=== PATIENT | male | born 1935 ===

== ENCOUNTER → 2022-07-04 | Outpatient (CLI) | payer MEDICARE | END | disposition home or self-care (01) | LOC: LABPAT 11:13 | PROVIDERS: ATTEND Orthopaedic Surgery | DX: Z01.818 Encounter for other preprocedural examination (principal); Z22.322 Carrier or suspected carrier of Methicillin resistant Staphylococcus aureus; M43.16 Spondylolisthesis, lumbar region; M48.061 Spinal stenosis, lumbar region without neurogenic claudication | CPT/HCPCS: 87070 ==

== ENCOUNTER 2022-07-12 08:00 | Inpatient (IN) | payer MEDICARE ==
[2022-07-06 11:42] VITALS: BMI 27.3
--- NOTE | 2022-07-12 06:27 | P.HPOR ---
History of Present Illness H&P Date: 07/04/22 .T:Title: [facility] History and Physical Date of :[birth year] Age: 87 year Height: 5'8" Weight: 180 lbs BMI: 27.37 kg/m2 Occupation: Ag Equipment Field Service Technician for [employer] VAS: 6 CHIEF COMPLAINT: Low back, buttock pain, RLE pain with weakness DOI:NA, Chronic Duration of current treatment regiment: 5 mo HISTORY : Xrays brought xrays from outside facility which were reviewed New xrays taken in office Trauma or injury No Work-Related No Pain description dull, aching, sharp. Location posterior Activity Modification yes Hand Dominance right TREATMENTS COMPLETED: 6 weeks of PT completed? Month and Year of last PT date? 02/2022 Yes How many sessions? 6 Did it help? No Physician recommended home exercise completed? Duration of HEP course: Current Patient has trialed the physician directed home exercise program without relief of their symptoms. Medications yes List: Amitriptyline without any relief Alternative interventions Chiropractic: No Massage therapy: No R.I.C.E: yes Brace: No Injections No RFA: No SUBJECTIVE: Mr. Saavedra returns to the office for a pre-operative recheck of their low back pain and planned L4-L5 MIS TLIF. Patient reports increasing low back pain and right lower extremity radiculopathy with no new known injury or trauma to indicate an exact onset of their symptoms. In addition to their lumbar pain, they do report that it radiates into the right lower extremity, associated withnumbness and tingling through the right L3-L5 dermatomal distribution. Overall the patient has seen a progressive increase in symptoms since their onset. Mr. Saavedra symptoms are exacerbated with any prolonged sitting, standing, or ambulation, due to this they notes that it is increasingly difficult for Mr. Saavedra to complete many of their daily tasks. Patient is having severe sleep disturbances as well due to their ongoing pain and associated symptoms. Regarding treatments, the patient has previously trialed all abovementioned treatment modalities without relief of his symptoms. Patient denies trialing any other modalities at this time. Otherwise the patient denies any f/c/sob/cp, no incision concerns, no bladder or bowel retention/incontinence, no perineal numbness/tingling, and ambulates independently. HPI: Mr. Saavedra last returned to the office on 04/28/2022 for recheck of their low back pain and to review his planned L4-L5 MIS TLIF. Patient reports increasing lumbar pain with right lower extremity radiculopathy with no new known injury or trauma to indicate an exact onset of their symptoms. In addition to their lumbar pain, they do report that it radiates into the right lower extremity, associated with numbness and tingling through the L3-L5 dermatomal distribution. Overall the patient has seen a progressive increase in symptoms since their onset. Mr. Saavedra symptoms are exacerbated with prolonged standing, ambulation, and high impact movements like walking up and down stairs, due to this they notes that it is increasingly difficult for Mr. Saavedra to complete many of their daily tasks. Patient is having severe sleep disturbances as well due to their ongoing pain and associated symptoms. Regarding treatments, the patient has previously trialed all abovementioned treatment modalities without relief of his symptoms. Patient denies trialing any other modalities at this time. Otherwise the patient denies any f/c/sob/cp, no incision concerns, no bladder or bowel retention/incontinence, no perineal numbness/tingling, and ambulates independently. Mr. Saavedra last presented to the office on 04/28/2022 for Evaluation of his low back and hip pain on the right. He states it has been going on for >6 mo and is getting worse. He has dealt with pain his whole life, but over the past three months it has been much worse. 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 He visited Dr. Julien and Dr. Herr and both agreed after MRI was ordered that he needed intervention due to progressive sx. He has tried PT as well as some HEP without help. He has taken medications antiinflammatories with no lasting effect. He denies any bowel or bladder issues states no perineal numbness or tingling but does state weakness in his leg, hip pain as well as buttock and tailbone pain that seems to radiate down his right leg. He denies any f/c/sob/cp at this time. He is very spry and normally performs all ADLs on his own, he is having difficulty with this however as of late due to his sx. The patients' past social, medical, family, surgical history, as well as review of systems, have been reviewed. Please refer to the Neurosurgery History and Physical form that has been scanned in to our electronic medical record system. 16 points review of systems completed and as stated in HPI, all other systems reviewed are negative. Social History: Reviewed, see appropriate section of the chart for details. P3 Family History: Reviewed, see appropriate section of the chart for details. P2 Past Medical History: Reviewed, see appropriate section of the chart for details. P1 Current Medications: Rx: amitriptyline 50 mg tablet Ref: 0 Rx: atorvastatin 40 mg tablet Ref: 0 Rx: finasteride 5 mg tablet Ref: 0 Rx: levothyroxine 50 mcg capsule Ref: 0 Rx: omeprazole 20 mg tablet,delayed release Ref: 0 Rx: tamsulosin 0.4 mg capsule Ref: 0 PHYSICAL EXAMINATION: General: Awake, alert, appropriate for age, in no acute distress. HEENT: No unusual neck masses around region of lateral neck triangle, thyroid, supraclavicular groove Heart: Regular rate and rhythm, normal S1, S2 and no murmur/gallop. Lungs: Clear to auscultation bilaterally with no use of accessory muscles. Extremities: Skin warm and dry without acute lesions, coloration, temperature, skin intact, no tenderness or erythema Integument: Hairy patches: ABSENT Dorsal skin dimples: ABSENT Cafe au lait spots: ABSENT Surgical incisions: None Palpation: Please see Pain drawing on Intake sheet for further detail. Midline spinal tenderness: No E6 Cervical Tenderness: No E6 Paralumbar tenderness: Yes E6 Parathoracic tenderness: No E6 Buttocks tenderness: Yes E6 POSTURAL and MUSCULO-SKELETAL EVALUATION: Coronal Balance: NEUTRAL Recumbent testing: Patient is able to lay flat on back Sagittal Balance: POSITIVE Shoulder Profile: LEVEL Pelvic Girdle: LEVEL Neck ROM: UNRESTRICTED Lumbar ROM: RESTRICTED Shoulder ROM: Symmetrical Hip ROM: Symmetrical Knee ROM: Symmetrical Hands: Normal appearance, symmetrical Feet: Normal appearance, Symmetrical VASCULAR STATUS : LEFT RIGHT Wrist Pulses INTACT INTACT Pedal Pulses (Dors. pedis & post.tibialis) INTACT INTACT Color NORMAL NORMAL Edema Absent Absent NEUROLOGIC EXAMINATION: Mental Status:Awake and alert, fully oriented, with normal attention, concentration and memory, and fluent, appropriate speech. Cranial Nerves: I: Olfactory not tested. II: Visual acuity normal, no visual field deficit noted with confrontation. III,IV: Normal pupillary reflexes & intact extraocular movements without nystagmus. V,: Intact symmetrical facial sensation. VII: Intact symmetrical facial motor movement VIII: Hearing intact. IX,X: Intact gag, swallow, & normal voice. XI: Sternocleidomastoid, trapezius function intact. XII: Tongue midline with normal movements. L'hermitte's Sign: Negative / absent Spurling'Sign: Absent bilaterally. Cubital percussion test: Absent bilaterally. Bond-Tinel sign - Carpal region: Absent bilaterally. Straight Leg Raising: Absent bilaterally. Crossed straight leg raise: negative O8 MOTOR EXAM (0-5/5, N/T) UPPER EXTREMITY Shoulder Abduction Biceps Triceps Wrist Extension Hand Intrinsics Kit Planner Right 5/5 5/5 5/5 5/5 5/5 5/5 Left 5/5 5/5 5/5 5/5 5/5 5/5 LOWER EXTREMITY Hip Flexion Knee Extension Knee Flexion DF PF EHL FHL Right 4/5 4/5 4/5 4/5 4/5 4/5 4/5 Left 4/5 4/5 4/5 4/5 4/5 4/5 4/5 REFLEXES(0-4/2, NT)Upper ExtremityLower Extremity Right 2 2 Left 2 2 Pathological Reflexes RIGHT LEFT Bond's Absent Absent Clonus Absent Absent Babinski Absent Absent # Indicates mechanical impairment Muscle appearance: Symmetrical, without signs of atrophy or dystrophy. Sensory system (0-4, N/T) Test type RU MARK RL LL Joint-Position 2 2 2 2 Vibration 2 2 2 2 Pain & LT sense 2 2 2 2 Dermatomal Deficit: None None L3-5 None Gait and Functional Evaluation: Ambulatory aids: Cane Romberg's test: Intact bilaterally Toe heel walk / heel-toe walk intact while maintaining satisfactory balance? No Squatting/straightening w/o assistance to a min of 60 degree knee flexion? No Single leg stance: Tren Pos Hand and finger dexterity intact bilaterally? yes Disdiadochokinesis examination negative bilaterally? yes RADIOGRAPHIC STUDIES: XRay (5 views) taken on 04/28/22 obtained at [facility] of Lumbar Spine: Multiple views discussed with pt. This demonstrates L4-5 grade I spondylol isthesis with 4 mm mobile translation from F/E films. No fracture noted. 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 There is spondylosis noted at this level as well as at L5-S1 where there is also a degenerative Grade I spondylolisthesis that is stable. There is spondylosis with complete disc collapse L2-3 and some retrolisthesis. No lesions. AP pelvis demonstrates level pelvis, mild OA changes no fracture CT scan without contrast from 05/20/2022 obtained at [facility] of the lumbar spine: IMages reviewed with the patient. This demonstrates L4-5 and L5-S1 spondylolisthesis Grade I that is partially reduced on supine film. There are vacuum discs as L4-5 and L5-S1 noted as well. There is flattening of the normal lumbar lordosis secondary to these changes. No fractures noted. No lesions. Central stenosis reltated to spondylotic changes, disc bulge, hypertrophy causing stenosis as well noted. No lesions. MRI scanfrom 03/27/2022 obtained at [facility] Lumbar Spine: Images reviewed with pt in office. There is again Grade I spondylolisthesis that is mobile at L4-5 with severe central and foraminal stenosis related to this and ligamental and facet hypertrophy. There are boggy facets L4-S1 with L5-S1 GI spondylolisthesis as well that is stable. There is severe spondylosis L2-3 with complete disc collapse and retrolisthesis. There are no fractures or other dislocations. No lesions noted at this time. IMPR ESSION: It was my pleasure to have seen and examined Kenneth. I reviewed the patient's clinical syndrome, physical findings, and imaging studies during the appointment today. It is my impression that the patient has a diagnosis of. 1. L4-5 Grade I spondylolisthesis, unstable with severe stenosis 2. L5-S1 Grade I spondylolisthesis, stable 3. L2-3 spondylosis severe 4. Neurogenic claudication 5. Mechanical Low back Pain 6. RLE radiculopathy 7. LE weakness I outlined the natural course history without intervention and various interventional options. PLAN: Based on my findings I suggest the following course of action: - Advised patient to continue with supplements, health maintenance, and home exercise programs. Patient expressed understanding and will continue with these modalities. -I discussed treatment options with the patient, including operative and non- operative options, and they have elected to proceed with the following surgical procedure: Lumbar 4 to L5 possibly Sacral 1 minimally invasive TLIF (10448) The indications, risks, benefits, and alternatives to surgery were discussed with the patient and family at length. Specifically (but not limited to) the risks of infection, stiffness, recurrence of symptoms, need for revision surgery, local numbness, neurovascular injury, and blood clots were discussed. The patient's questions were answered. The decision to proceed was made. Consent will be obtained for the procedure. We will anticipate Spine Surgery Risk Review Mr. Saavedra is presenting for evaluation of low back pain with right lower extremity radiculopathy. It was my pleasure to have seen and examined Mr. Saavedra. In our visit today we have had a chance to go over subjective complaints, physical examination findings and treatments including the natural course history without intervention and various interventional options. The patients imaging demonstrates: XRay (5 views) taken on 04/28/22 obtained at [facility] of Lumbar Spine: Multiple views discussed with pt. This demonstrates L4-5 grade I spondylolisthesis with 4 mm mobile translation from F/E films. No fracture noted. 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 There is spondylosis noted at this level as well as at L5-S1 where there is also a degenerative Grade I spondylolisthesis that is stable. There is spondylosis with complete disc collapse L2-3 and some retrolisthesis. No lesions. AP pelvis demonstrates level pelvis, mild OA changes no fracture CT scan without contrast from 05/20/2022 obtained at [facility] of the lumbar spine: IMages reviewed with the patient. This demonstrates L4-5 and L5-S1 spondylolisthesis Grade I that is partially reduced on supine film. There are vacuum discs as L4-5 and L5-S1 noted as well. There is flattening of the normal lumbar lordosis secondary to these changes. No fractures noted. No lesions. Central stenosis reltated to spondylotic changes, disc bulge, hypertrophy causing stenosis as well noted. No lesions. MRI scanfrom 03/27/2022 obtained at [facility] Lumbar Spine: Images reviewed with pt in office. There is again Grade I spondylolisthesis that is mobile at L4-5 with severe central and foraminal stenosis related to this and ligamental and facet hypertrophy. There are boggy facets L4-S1 with L5-S1 GI spondylolisthesis as well that is stable. There is severe spondylosis L2-3 with complete disc collapse and retrolisthesis. There are no fractures or other dislocations. No lesions noted at this time. On physical exam, Mr. Saavedra demonstrates severely restricted lumbar ROM with bilateral buttocks TTP. Patient does also demonstrate global weakness in LE b/l with R slightly > than L. There is L3-L5 dermatomal deficit as well about the right lower extremity. Furthermore the patient has significant gait disturbance as well due to the severity of his symptoms. I have explained to the patient that as their condition progresses it will cause further neurological deficits and eventual paralysis. Based on the patients imaging, physical exam, and the rapid progression and disabling nature of their symptoms, at this time I recommend surgery in the form or a: Lumbar 4 to 5 minimally invasive TLIF (16001). I discussed the risk and benefits of this procedure at length with Mr. Saavedra. The patient and his family agreed to considered pursuing the procedure abovementioned. Prior to surgery, she should follow up with her PCP (Cardio, ID, IM etc) for clearance. Questions were invited and answered, and the patient wishes to proceed as outlined below. Currently, I am recommendin.Lumbar 4 to L5 possibly Sacral 1 minimally invasive TLIF (29304, [id number]) 2.Follow up with PCP for surgical clearance 3.Review of surgical risks and benefits as well as an educational packet on the proposed surgical procedure. Risks: All surgical procedures come with inherent risks, including those related to positioning, anesthesia, intraoperative findings, and postoperative complications. It is important to understand that surgery does not come with any guarantee of a successful outcome as complications and adverse events are always possible. The patient was given a handout in office today discussing the surgical procedure and risks associated with the intervention, both of which were discussed with the patient. These risks include but are not limited to the following: * Experiencing same, different or even worse symptoms in back, neck, arms, or legs compared to before surgery. Requiring further surgery or other forms of treatment presently or at some time in the future at same or other levels of the intended spine surgery. On an extreme but fortunately relatively rare basis severe complication such as blindness, stroke, heart attack, temporary and/or permanent nerve injury, paralysis, coma, or may occur, sometimes without known explanation. Surgical complications may include but are not limited to risk of infection, fluid accumulation in the surgical dissection site, including a seroma or hematoma, that requires additional surgery, wound drainage, bleeding, new numbness or weakness, vision changes/loss, spinal fluid leakage, non-healing and/or infected incision, headaches, difficulty or inability to swallow, hoarseness, hemopneumothorax, pneumothorax, impotence, retrograde ejaculation, vaginal dryness; injury to nerves, spinal cord, blood vessels, lymphatics or other vital organs (i.e., bowel injury, injury to the great vessels); heterotopic bone formation; complications related to the hardware such as screws, rods, cages including misplaced hardware, device failure, instrumentation at the wrong spine level, hardware fracture/breakage, or hardware loosening; vertebral failure of the spinal column above or below the newly placed hardware; retained surgical instrumentations or devices and the need for further surgery. * Medical risks of the planned spine surgery include but are not limited to generalized Infections to the whole body or local areas outside of the surgical site (sepsis), heart attack, bleeding, anaphylaxis, meningitis, seizure, epilepsy, hearing loss, burn so, laceration of the head or other areas of the body, bruising, hypersensitivity of the skin, bladder over distension; allergic reaction; shoulder injury related to positioning; fat, blood and air clots to other areas of the body like heart, lungs, brain; failure of internal organs such as lungs, kidneys, liver and excessive bleeding. If blood transfusions are necessary, note that transfusions may cause intolerance reactions such as anaphylaxis or other complex reactions. Despite best efforts, the results of spine surgery might not heal in terms of bone, soft tissues such as skin, fascia, ligaments, and joints. Additionally, in order to achieve best possible results, spine surgery may be carried out beyond the initially planned levels and involve decompression, fusion including insertion of hardware at levels other than the original intended area of surgical interest change some portions of the procedure in order to ensure the best possible outcomes. With spine surgery and spinal fusion, there are different off label uses of instrumentation (devices, implants and hardware) as well as biological substances (bone morphogenic proteins, demineralized bone matrix) as well as using extra bone from allograft sources (i.e. cadaver bone) or autograft (iliac crest bone, ribs, or the spine itself). The patient has been given information about these practices and their inherent risks and benefits. [facility] is an educational center that serves as a training facility for neurosurgical and orthopedic PRODUCT SUPPORT SALES REPRESENTATIVE and Nursing students. Physician assistants are medically trained surgical providers who function in the outpatient, inpatient, and operating room setting under the direct supervision of the attending surgeon. [facility] has multiple operating rooms with single and overlapping rooms running daily. They currently function under the required guidelines as produced by the [facility] Finance Committee with regards to the overlapping rooms and will continue to comply with changes to this policy as they occur. The requirements include and are complied with as follows: (1) the critical portions of the overlapping rooms will not occur at the same time, (2) the attending physician will be physically present during the critical portions of the procedure and immediately available during the entire case, and (3) a back-up attending is designated should the primary attending not be immediately available. The patient has had a chance to review all the listed information, has been given print outs detailing this information, and has had all his/her questions answered to their satisfaction. It was my pleasure to have seen and examined Mr. Saavedra. In our visit today we have had a chance to go over my understanding of our patient's current condition, the natural course history without intervention and various interventional options. Questions were invited and answered, and the patient wishes to proceed as outlined above. I have seen and examined the patient for 25 minutes and we have spent more than 50% of the time in repeat and detailed counseling about the patient's condition, its natural course history with out and as much as can be predicted with surgery and re-review of various surgical treatment options. In conclusion, Mr. Saavedra and his family requested we proceed with the above suggested surgery and are willing to accept risks and limitations of the suggested surgery as nature of the disease process and our best attempts at treatment for the condition. Thank you again for allowing us to be part of your patient's care. Please don't hesitate to contact me if you have any further questions. Follow- up: 2 weeks post-op Medications Reviewed: YES In our visit today Mr. Saavedra and I have had a chance to go over my understanding of the patient's current condition, the natural course history without intervention and various interventional options. Questions were invited and answered, and the patient wishes to proceed as outlined above. I will be sure to keep you updated afterMr. Saavedra returns here for further follow-up. Thank you again for your referral. Please do not hesitate to contact me if you have any further questions. Signed and authenticated by: Robert Urrutia [facility] [address] [place] [address] This message is confidential, intended only for the named recipient(s) and may contain information that is privileged or exempt from disclosure under applicable law. If you are not the intended recipient(s), you are notified that the dissemination, distribution or copying of this information is strictly prohibited. If you received this message in error, please notify the sender then delete this message. Code Level 5: The level of medical decision making for this patient was high. 1 or more chronic illnesses were addressed with exacerbation and that could potentially cause threat to neurological function of the patient. There was extensive review of the patients chart, test results, imaging which were all independently reviewed and discussed with the patient at length. We discussed at length the decision for major surgical intervention along with all the risks, benefits and alternatives for the patients conditions. They were educated extensively on their medications as well as their illnesses. # SIGNED BY Robert Lubin (GOO)07/04/2022 12:51PM Past Medical History Past Medical History: Cancer, GERD/Reflux, Hearing Disorder / Deafness, Hyperlipidemia, Myocardial Infarction (SC), Osteoarthritis (OA), Thyroid Disorder Additional Past Medical History / Comment(s): Hx skin cancer numerous times. Hx Silent SC in 2018. Hx Shingles 05/05 with nerve problems since in spine and left shoulder blade. Bilateral hearing aids. Last Myocardial Infarction Date:: 2018 History of Any Multi-Drug Resistant Organisms: None Reported Past Surgical History: Coronary Bypass/CABG Additional Past Surgical History / Comment(s): Triple bypass 05/02, skin cancer removed from various locations, rigth carpal tunnel surgery, bilateral catarcts removed. Past Anesthesia/Blood Transfusion Reactions: No Reported Reaction Past Psychological History: No Psychological Hx Reported Smoking Status: Former smoker Past Alcohol Use History: Daily Additional Past Alcohol Use History / Comment(s): Quit smoking at age 49. 1-2 alcoholic drinks daily. Past Drug Use History: None Reported - Past Family History Mother Family Medical History: Cancer Additional Family Medical History / Comment(s): Colon cancer. Medications and Allergies Home Medications Medication Instructions Recorded Confirmed Type Amitriptyline HCl 50 mg PO HS 07/06/22 07/06/22 History Aspirin [Adult Low Dose Aspirin EC] 81 mg PO DAILY 07/06/22 07/06/22 History Atorvastatin [Lipitor] 40 mg PO DAILY 07/06/22 07/06/22 History Finasteride [Proscar] 5 mg PO DAILY 07/06/22 07/06/22 History Fluticasone Nasal [place] [Flonase 2 spray EA NOSTRIL DAILY 07/06/22 07/06/22 History Nasal [place]] Levothyroxine Sodium [Synthroid] 50 mcg PO SUMOTUWETHFR 07/06/22 07/06/22 History Levothyroxine Sodium [Synthroid] 100 mcg PO SA 07/06/22 07/06/22 History Multivitamins, Thera [Multivitamin 1 tab PO DAILY 07/06/22 07/06/22 History (formulary)] Omeprazole 20 mg PO BID 07/06/22 07/06/22 History Pregabalin 75 mg PO BID 07/06/22 07/06/22 History Tamsulosin [Flomax] 0.4 mg PO DAILY 07/06/22 07/06/22 History Allergies Allergy/AdvReac Type Severity Reaction Status Date / Time No Known Allergies Allergy Verified 07/06/22 11:10 Physical Examination Osteopathic Statement: *. No significant issues noted on an osteopathic structural exam other than those noted in the History and Physical/Consult.
[2022-07-12] MEDS ORDERED: ONDANSETRON 4 MG/2 ML VIAL IVP ONE (08:09)
[2022-07-12] MEDS ORDERED: fentaNYL (PF) 50 MCG/ML 2 ML AMP IV PRN (08:09)
[2022-07-12] MEDS: LACTATED RINGERS 1,000 ML IV SCH (08:52)
[2022-07-12 09:30] LABS: Albumin 4.1 g/dL (3.5-5.0); Calcium 8.9 mg/dL (8.4-10.2); Total Bilirubin 1.4 mg/dL (0.2-1.3); Total Protein 6.6 g/dL (6.3-8.2)
[2022-07-12 09:34] LABS: Potassium 5.2 mmol/L (3.5-5.1)
[2022-07-12] MEDS ORDERED: TRANEXAMIC ACID 1,000 MG in SODIUM CHLORIDE 0.9% 100 ML IVPB STA ×4 (11:11)
[2022-07-12] MEDS ORDERED: THROMBIN (BOVINE) 5,000 UNIT VIAL TOPICAL ONE (11:20)
[2022-07-12] MEDS ORDERED: GELATIN SPONGE,ABSORB (LARGE) 1 EACH SPONGE TOPICAL ONE (11:20)
[2022-07-12] MEDS ORDERED: LACTATED RINGERS 1,000 ML IV ONE (13:37)
[2022-07-12] MEDS ORDERED: BUPIVACAINE (PF) 0.25% 30 ML VIAL SQ ONE (13:41)
--- NOTE | 2022-07-12 13:52 | FL ---
EXAMINATION TYPE: FL guidance operating room, XR lumbar spine 2 or 3V DATE OF EXAM: 07/12/2022 CLINICAL HISTORY: Lumbar fusion. Low back pain. TECHNIQUE: Fluoroscopy. Limited intraoperative views lumbar spine. COMPARISON: Outside lumbar spine x-ray April 28, 2022. FINDINGS: Fluoroscopic guidance was provided during lumbar fusion procedure performed by Dr. Alegria son. A total of 1 minute 50 seconds of fluoroscopic time was utilized during the procedure and 6 spo t images was acquired. Images acquired show placement of posterior interpedicular rods and screws and metallic disc material at suspected L4-L5 level. IMPRESSION: As Above.
[2022-07-12] MEDS ORDERED: HYDROmorphone 0.5 MG/0.5 ML SYRINGE IVP ONE ×2 (14:15→14:29)
[2022-07-12] MEDS ORDERED: MAGNESIUM HYDROXIDE 2,400 MG/10 ML CUP PO PRN (14:15)
[2022-07-12] MEDS ORDERED: traMADol 50 MG TAB PO PRN (14:15)
[2022-07-12] MEDS ORDERED: MAG HYDROX/AL HYDROX/SIMETH 30 ML CUP PO PRN (14:15)
[2022-07-12] MEDS ORDERED: SENNOSIDES-DOCUSATE SODIUM 1 EACH TAB PO PRN (14:15)
[2022-07-12] MEDS ORDERED: ONDANSETRON 4 MG/2 ML VIAL IVP PRN (14:15)
--- NOTE | 2022-07-12 17:42 | P.CONS ---
History of Present Illness - Reason for Consult Consult date: 07/12/22 Medical management Requesting physician: Robert Lubin - History of Present Illness History of Presenting Illness: Patient is a very pleasant 87-year-old male with a past medical history of CAD status post CABG 3, hypertension, hyperlipidemia, hypothyroidism, GERD, and BPH. He is currently admitted under orthospine surgical team status post elective transforaminal lumbar interbody fusion of L4 through L5 secondary to lower back pain with right lower extremity radiculopathy that had resulted in severely restricted lumbar range of motion in right lower extremity weakness causing significant gait disturbances. We have been consulted for medical management throughout patient's hospitalization. Patient seen and fully evaluated at bedside. Patient visiting with family at this time and reports currently experiencing moderate postsurgical pain/discomfort in which RN is at bedside to medicate as previously ordered. Rader catheter in place. Patient denies having any numbness/tingling/weakness in lower extremities. Movement and sensation is intact. Patient denies experiencing any headache, lightheadedness, dizziness, chest pain, palpitations, shortness of breath, or experiencing any postoperative nausea and vomiting. Patient has been tolerating clear liquid oral intake and RN to advance as patient tolerates. Patient denies history of DVTs or PEs. Review of systems: Pertinent positives and negatives as discussed in HPI, a complete review of systems was performed and all other systems are negative. Physical exam: Vital signs reviewed and stable. General: Nontoxic, no distress and appears stated age. Derm: Skin warm and dry, normal coloration for ethnicity. Head: Atraumatic, normocephalic and symmetric. Eyes: EOMs intact, no lid lag, and anicteric sclera Mouth: no lip lesions, mucus membranes moist Cardiovascular: regular rate and rhythm with normal S1S2, stage III systolic murmur, positive posterior tibial pulses bilaterally, and cap refill < 2 seconds. Lungs: Respirations even, regular, and unlabored on room air. Lungs CTA bila terally, no rhonchi, no rales, no wheezing, and no accessory muscle usage. Abdominal: soft, nontender to palpation, no guarding, no appreciable organomegaly. Rader catheter in place. Ext: ROM intact. No gross muscle atrophy, no edema, no contractures Neuro: Speech clear, face symmetrical and CN II-XII grossly intact with no noted focal neuro deficits Psych: Alert and oriented to person, place, time, and situation. Appropriate and pleasant affect. Assessment and Plan of Care: Status post L4 through L5 transforaminal lumbar interbody fusion -Management per primary admitting orthospine surgical team including pain management, DVT prophylaxis, wound/drain care, and PT/OT. -SCDs currently for DVT prophylaxis. History of CAD status post CABG 3 Hyperlipidemia -Monitor vital signs and continue daily medication regimen with atorvastatin. May resume aspirin once cleared by orthospine surgery. Hypothyroidism Continue daily medication regimen with levothyroxine. GERD Continue daily medication regimen with omeprazole 20 mg twice daily. BPH Continue daily medication regimen with finasteride and Flomax. Thank you for allowing us to participate in the care of this pleasant patient. Do not hesitate to contact us with questions. Someone can be reached from the [facility] hospitalist group all hours of the day at [phone] or via [employer]. Past Medical History Past Medical History: Cancer, GERD/Reflux, Hearing Disorder / Deafness, Hyperlipidemia, Myocardial Infarction (HI), Osteoarthritis (OA), Thyroid Disor ignacia Additional Past Medical History / Comment(s): Hx skin cancer numerous times. Hx Silent HI in 2019. Hx Shingles 05/05 with nerve problems since in spine and left shoulder blade. Bilateral hearing aids. Last Myocardial Infarction Date:: 2018 History of Any Multi-Drug Resistant Organisms: None Reported Past Surgical History: Coronary Bypass/CABG Additional Past Surgical History / Comment(s): Triple bypass 05/02, skin cancer removed from various locations, rigth carpal tunnel surgery, bilateral catarcts removed. Past Anesthesia/Blood Transfusion Reactions: No Reported Reaction Past Psychological History: No Psychological Hx Reported Smoking Status: Former smoker Past Alcohol Use History: Daily Additional Past Alcohol Use History / Comment(s): Quit smoking at age 49. 1-2 alcoholic drinks daily. Past Drug Use History: None Reported - Past Family History Mother Family Medical History: Cancer Additional Family Medical History / Comment(s): Colon cancer. Medications and Allergies Home Medications Medication Instructions Recorded Confirmed Type Amitriptyline HCl 50 mg PO HS 07/06/22 07/12/22 History Aspirin [Adult Low Dose Aspirin EC] 81 mg PO DAILY 07/06/22 07/06/22 History Atorvastatin [Lipitor] 40 mg PO DAILY 07/06/22 07/12/22 History Finasteride [Proscar] 5 mg PO DAILY 07/06/22 07/06/22 History Fluticasone Nasal [place] [Flonase 2 spray EA NOSTRIL DAILY 07/06/22 07/12/22 History Nasal [place]] Levothyroxine Sodium [Synthroid] 50 mcg PO SUMOTUWETHFR 07/06/22 07/06/22 History Levothyroxine Sodium [Synthroid] 100 mcg PO SA 07/06/22 07/12/22 History Multivitamins, Thera [Multivitamin 1 tab PO DAILY 07/06/22 07/06/22 History (formulary)] Omeprazole 20 mg PO BID 07/06/22 07/06/22 History Pregabalin 75 mg PO BID 07/06/22 07/06/22 History Tamsulosin [Flomax] 0.4 mg PO DAILY 07/06/22 07/06/22 History Allergies Allergy/AdvReac Type Severity Reaction Status Date / Time No Known Allergies Allergy Verified 07/12/22 08:40 Physical Exam Vitals: Vital Signs Temp Pulse Pulse Resp BP BP BP 07/12/22 16:00 80 16 158/76 07/12/22 15:30 75 16 144/74 07/12/22 15:15 77 16 151/74 07/12/22 15:00 71 16 142/74 07/12/22 14:45 73 16 148/75 07/12/22 14:30 76 16 149/77 07/12/22 14:15 72 16 151/74 07/12/22 14:00 80 16 155/73 07/12/22 13:58 96.8 F L 84 12 155/73 07/12/22 09:11 185/88 07/12/22 08:38 97.0 F L 90 16 163/96 Pulse Ox 07/12/22 16:00 96 07/12/22 15:30 96 07/12/22 15:15 95 07/12/22 15:00 95 07/12/22 14:45 99 07/12/22 14:30 100 07/12/22 14:15 100 07/12/22 14:00 99 07/12/22 13:58 98 07/12/22 09:11 07/12/22 08:38 95 Intake and Output 07/12/22 07/12/22 07/12/22 06:59 14:59 22:59 Intake Total 2250 250 Output Total 550 100 Balance 1700 150 Intake: IV 2250 250 Output: Urine 500 100 Estimated Blood Loss 50 Other: Weight 84 kg Results CBC & Chem 7: 07/12/22 09:57 Labs: Abnormal Lab Results - Last 24 Hours (Table) 07/12/22 Range/Units 08:56 Potassium 5.2 H (3.5-5.1) mmol/L BUN 25 H (9-20) mg/dL Creatinine 1.32 H (0.66-1.25) mg/dL Total Bilirubin 1.4 H (0.2-1.3) mg/dL
[2022-07-12] MEDS: LEVOTHYROXINE 50 MCG TAB PO SCH (18:22)
[2022-07-12] MEDS: HYDROcodone/APAP 5-325MG 1 EACH TAB PO PRN (18:22)
[2022-07-12] MEDS: ACETAMINOPHEN TAB 500 MG TAB PO SCH ×2 (18:23→23:31)
--- NOTE | 2022-07-12 19:47 | CT ---
EXAMINATION TYPE: CT lumbar spine wo con CT DLP: 1258.7 mGycm, Automated exposure control for dose reduction was used. DATE OF EXAM: 07/12/2022 6:55 PM COMPARISON: Lumbar spine 07/12/2022.. CLINICAL INDICATION:Male, 87 years old with history of s/p lumbar fusion, S/P lumbar fusion. Post OP TECHNIQUE: Multiple axial images were obtained from the midportion of T11 through the sacroiliac marva nts. Soft tissue and bone windows in coronal and sagittal planes were obtained and reviewed. 3-D ref ormats of the bones were created on a separate workstation and submitted for review. Contrast used: none. Oral contrast used: none. FINDINGS: Alignment: There are 5 lumbar type vertebral bodies. Grade 1 anterolisthesis of L4 on L5. No spondylo lysis. Bone: Postsurgical changes to the lumbar spine at L4 and L5 with discectomy and hardware in place and in appropriate position. Hardware appears intact. Postsurgical changes in the surgical bed and stapl es in place. Discs: T12-L1: No spinal canal or neural foraminal stenosis is identified. L1-L2: Disc bulge and facet joint arthropathy with at least mild spinal canal stenosis and mild bilat eral neural foraminal stenosis. L2-L3: Osteophyte with facet joint arthropathy with at least mild spinal canal stenosis and moderate bilateral neural foraminal stenosis. L3-L4: Disc bulge and facet joint arthropathy with at least mild spinal canal stenosis and mild bilat eral neural foraminal stenosis. L4-L5: There appears to be at least moderate to severe spinal canal stenosis from facet joint arthro marta and osteophyte formation. There may be a small component of grade 1 anterolisthesis at this lev el. Moderate bilateral neural foraminal stenosis. L5-S1: Mild spinal canal stenosis with facet joint arthropathy. There is moderate to severe bilateral neural foraminal stenosis. Other: Bilateral renal cysts some of which have peripheral calcifications. Severe atherosclerosis of the arterial vasculature with saccular dilation of the infrarenal aorta measuring up to 2.6 cm. IMPRESSION: 1. Post surgical changes lumbar spine. Hardware appears intact and in appropriate position. 2. L4-L5 moderate to severe spinal canal stenosis. 3. Multiple bilateral renal cysts some with peripheral calcifications. This can be further character ized with MRI with IV contrast renal mass protocol as clinically warranted.
[2022-07-12] MEDS: PREGABALIN 75 MG CAP PO SCH (20:09)
[2022-07-12] MEDS: HYDROmorphone 0.5 MG/0.5 ML SYRINGE IVP PRN ×2 (20:11→23:55)
[2022-07-12] MEDS: AMITRIPTYLINE HCL 50 MG TAB PO SCH (20:11)
[2022-07-12] MEDS ORDERED: PREGABALIN 75 MG CAP PO SCH (21:00)
[2022-07-13] MEDS: ACETAMINOPHEN TAB 500 MG TAB PO SCH ×4 (05:38→23:54)
[2022-07-13] MEDS: LEVOTHYROXINE 50 MCG TAB PO SCH (05:38)
[2022-07-13] MEDS: FINASTERIDE 5 MG TAB PO SCH (07:43)
[2022-07-13] MEDS: ATORVASTATIN 40 MG TAB PO SCH (07:43)
[2022-07-13] MEDS: MULTIVITAMINS, THERA 1 EACH TAB PO SCH (07:43)
[2022-07-13] MEDS: PANTOPRAZOLE 40 MG TABLET PO SCH (07:43)
[2022-07-13] MEDS: FLUTICASONE 50MCG/SPRAY NASAL 16GM EA NOSTRIL SCH (07:43)
[2022-07-13] MEDS: PREGABALIN 75 MG CAP PO SCH ×2 (07:44→21:49)
[2022-07-13 08:41] LABS: Basophils # (A) 0.03 X 10*3/uL (0.00-0.10); Basophils % (A) 0.3 %; Eosinophils # (A) 0.01 X 10*3/uL (0.04-0.35); Eosinophils % (A) 0.1 %; HGB 14.5 g/dL (13.0-17.0); Immature Grans, Automated 0.6 %; Lymphocytes # (A) 1.43 X 10*3/uL (0.90-5.00); Lymphocytes % (A) 15.9 %; MCH 31.5 pg (27.0-32.0); MCHC 31.5 g/dL (32.0-37.0); Mean Platelet Volume 10.4 fL (9.5-12.2); Monocytes # (A) 0.82 X 10*3/uL (0.20-1.00); Monocytes % (A) 9.1 %; NRBC Per 100 WBC 0 /100 WBCS (0.0-0.0); Neutrophils # (A) 6.68 X 10*3/uL (1.80-7.70); Platelet Count 155 X 10*3/uL (140-440); RDW 13.9 % (11.5-14.5); WBC 9.02 X 10*3/uL (4.50-10.00)
[2022-07-13 08:58] LABS: African American GFR (CKD) 45.6 (60.0-200.0); Anion Gap 12.3 mmol/L (10.00-18.00); BUN/Creat Ratio 15.29 Ratio (12.00-20.00); Calcium 8.9 mg/dL (8.7-10.3); Carbon Dioxide 24.8 mmol/L (20.0-27.5); Non-African American GFR(CKD) 39.3 (60.0-200.0); Potassium 4.9 mmol/L (3.5-5.5)
[2022-07-13] MEDS ORDERED: TAMSULOSIN 0.4 MG CAP.ER.24H PO SCH (09:00)
--- NOTE | 2022-07-13 09:00 | P.PN ---
Subjective Progress Note Date: 07/13/22 Principal diagnosis: Lumbar spondylolisthesis Lumbar spondylosis with stenosis Patient seen and examined at bedside. Patient was resting in bed. Patient assisted with repositioning and tolerated well. Surgical dressings are clean dry and intact. Patient states he is looking forward to working with physical therapy and to sit up in chair today. He reports that his pain is managed on current regimen. Patient is moving bilateral lower extremities without any difficulty. He states that last night he started at the bedside and took a few steps, limited activity due to increased back pain. Patient currently denies any fevers/chills, nausea/vomiting, or chest pain. Objective - Vital Signs Vital signs: Vital Signs Temp 98.6 F 07/13/22 05:00 Pulse 86 07/13/22 05:00 Resp 16 07/13/22 05:00 BP 96/61 07/13/22 05:00 Pulse Ox 94 L 07/13/22 05:00 FiO2 Intake & Output 07/12/22 07/13/22 07/13/22 18:59 06:59 18:59 Intake Total 2500 240 Output Total 650 Balance 1850 240 Weight 84 kg Intake: IV 2500 Intake, IV Titration 240 Amount Lactated Ringers 1,000 ml 240 @ 0 mls/hr IV .[employer] ONE Rx#:[id number] Output: Urine 600 Estimated Blood Loss 50 Other: Voiding Method Indwelling Catheter - Exam Physical Examination General: The patient is awake and alert, in no acute distress Skin: Skin is warm and dry with no obvious rashes or lesions. Hairy patches absent, no dorsal skin dimples, no cafe au lait spots. Surgical incision to the lumbar region. Eye: Pupils are equal, round and reactive to light, extra-ocular movements are intact; there is normal conjunctiva bilaterally. Neck: The neck is supple, there is no tenderness and ROM intact. Cardiovascular: There is a regular rate and rhythm. No murmur, rub or gallop is appreciated. Respiratory: Lungs are clear to auscultation, respirations are non-labored, breath sounds are equal. Gastrointestinal: Soft, non-distended, non-tender abdomen. Back: There is no tenderness to palpation in the midline, paralumbar, parathoracic or buttocks region. There is no obvious deformity . Musculoskeletal: ROM limited secondary to pain and stiffness from surgical procedure. Muscle strength in all major muscle groups of bilateral upper extrem ities 5/5, bilateral lower extremities 4/5. Neurological: CN 2-12 intact. There are no obvious motor or sensory deficits. Movement and coordination equal and intact. Sensory exam to light touch intact C5-T1 and intact from L2-S1. Reflexes 2/4 in bilateral upper and lower extremities. Negative Hoffmans, babinski, and clonus signs. Psychiatric: Cooperative, appropriate mood & affect, normal judgment. - Labs CBC & Chem 7: 07/13/22 03:32 07/12/22 09:57 Labs: Abnormal Lab Results - Last 24 Hours (Table) 07/12/22 Range/Units 08:56 Potassium 5.2 H (3.5-5.1) mmol/L BUN 25 H (9-20) mg/dL Creatinine 1.32 H (0.66-1.25) mg/dL Total Bilirubin 1.4 H (0.2-1.3) mg/dL Assessment and Plan Assessment: Postop day 1: Minimally invasive TLIF L4-L5. Plan: Plan: -Appreciate senior research consultant and team management. -Activity: Ambulate QID, OOB all meals, up and about, limit lifting bending twisting to less than 5 lbs. Use walker or cane if needed for stability. -Daily PT/OT, increase ambulation strength and balance. -Pain control: Adequate at this time -Meds: reviewed -GI ppx: senna, Miralax -DVT PPX: OK to restart Heparin tonight -Hygiene: Shower today. Maintain dressing clean and dry. Meticulous cleaning after BMs away from the incision site -Encourage IS 10x/hr -Dispo: Anticipate discharge home tomorrow with homecare *I reviewed and discussed this case with my attending Dr. Lubin, whom has reviewed this chart and films and is in agreement with assessment and plan of care as outlined above. I have personally seen and examined the patient, performed the documentation and the assessment and plan as written. Number of minutes spent on the visit: 20m.
[2022-07-13] MEDS: HYDROcodone/APAP 5-325MG 1 EACH TAB PO PRN ×2 (11:36→16:59)
--- NOTE | 2022-07-13 15:47 | XR ---
EXAMINATION TYPE: XR lumbar spine 2 or 3V DATE OF EXAM: 07/13/2022 Comparison: CT 07/12/2022 Clinical History: 87-year-old male with pain, unwitnessed fall, 1 day post op lumbar fusion Findings: Patient is status post L4-L5 posterior and interbody fusion. Overlying posterior skin vanessa are pre sent. No retropulsion of the interbody device. Grade 1 retrolisthesis at L1-L2, L2-L3, and L3-L4 is s imilar. Facet arthropathy throughout. Prominent anterior plate spondylosis lower thoracic and upper l umbar spine. Vertebral body heights are preserved. Dense prostatic calcifications throughout the abdo matt aorta. Large stool in the right hemicolon. Impression: Status post L4-L5 posterior and interbody lumbar fusion. No evident hardware complication. Degenerati ve grade 1 retrolisthesis from the L1-L4 levels appears similar. No vertebral compression collapse.
--- NOTE | 2022-07-13 18:47 | P.PN ---
Subjective Progress Note Date: 07/13/22 Hospital course: Patient is a very pleasant 87-year-old male with a past medical history of CAD status post CABG 3, hypertension, hyperlipidemia, hypothyroidism, GERD, and BPH. He is currently admitted under orthospine surgical team status post elective transforaminal lumbar interbody fusion of L4 through L5 secondary to lower back pain with right lower extremity radiculopathy that had resulted in severely restricted lumbar range of motion in right lower extremity weakness causing significant gait disturbances. We have been consulted for medical management throughout patient's hospitalization. Physical exam: Patient was seen and fully evaluated at bedside this morning. Patient reports mild pain rated 3-4 out of 10 to lower back in which she states is currently controlled. He denies having any numbness/tingling/weakness. Rader catheter was just removed and patient is attempting to urinate but currently unable to initiate stream and is exhibiting urinary retention. Patient denies having any headache, lightheadedness, dizziness, chest pain, palpitations, shortness of breath, or any other complaints at this time. Patient's SpO2 94% on 2 L. This was discussed with patient to encourage use of incentive spirometry to prevent atelectasis. Vital signs reviewed and stable. General: Nontoxic, no distress and appears stated age. Derm: Skin warm and dry, normal coloration for ethnicity. Dressing x2 in place to lumbar spine with minimal serosanguineous drainage. Head: Atraumatic, normocephalic and symmetric. Eyes: EOMs intact, no lid lag, and anicteric sclera Mouth: no lip lesions, mucus membranes moist Cardiovascular: regular rate and rhythm with normal S1S2, stage III systolic murmur, positive posterior tibial pulses bilaterally, and cap refill < 2 seconds. Lungs: Respirations even, regular, and unlabored on room air. Lungs CTA bilaterally, no rhonchi, no rales, no wheezing, and no accessory muscle usage. Abdominal: soft, nontender to palpation, no guarding, no appreciable organomegaly. Ext: ROM intact. No gross muscle atrophy, no edema, no contractures Neuro: Speech clear, face symmetrical and CN II-XII grossly intact with no noted focal neuro deficits Psych: Alert and oriented to person, place, time, and situation. Appropriate and pleasant affect. Assessment and Plan of Care: Status post L4 through L5 transforaminal lumbar interbody fusion -Management per primary admitting orthospine surgical team including pain management, DVT prophylaxis, wound/drain care, and PT/OT. -SCDs currently for DVT prophylaxis. -Encourage use of incentive spirometry 10-15 times hourly while awake to prevent atelectasis. Urinary retention -Bladder management straight As needed for urinary retention. Flomax increased to 0.4 mg twice daily. History of CAD status post CABG 3 Hyperlipidemia -Monitor vital signs and continue daily medication regimen with atorvastatin. May resume aspirin once cleared by orthospine surgery. Hypothyroidism Continue daily medication regimen with levothyroxine. GERD Continue daily medication regimen with omeprazole 20 mg twice daily. BPH Continue daily medication regimen with finasteride and Flomax. Thank you for allowing us to participate in the care of this pleasant patient. Do not hesitate to contact us with questions. Someone can be reached from the [facility] hospitalist group all hours of the day at [phone] or via [employer]. Objective - Vital Signs Vital signs: Vital Signs Temp 98.6 F 07/13/22 05:00 Pulse 86 07/13/22 05:00 Resp 16 07/13/22 05:00 BP 96/61 07/13/22 05:00 Pulse Ox 94 L 07/13/22 05:00 FiO2 Intake & Output 07/12/22 07/13/22 07/13/22 18:59 06:59 18:59 Intake Total 2500 240 Output Total 650 Balance 1850 240 Weight 84 kg Intake: IV 2500 Intake, IV Titration 240 Amount Lactated Ringers 1,000 ml 240 @ 0 mls/hr IV .[employer] ONE Rx#:[id number] Output: Urine 600 Estimated Blood Loss 50 Other: Voiding Method Indwelling Catheter - Labs CBC & Chem 7: 07/13/22 03:32 07/13/22 03:32 Labs: Abnormal Lab Results - Last 24 Hours (Table) 07/12/22 07/13/22 07/13/22 Range/Units 08:56 03:32 03:32 MCV 100.0 H (80.0-97.0) fL MCHC 31.5 L (32.0-37.0) g/dL Immature Gran # 0.05 H (0.00-0.04) X 10*3/uL Eosinophils # 0.01 L (0.04-0.35) X 10*3/uL Potassium 5.2 H (3.5-5.1) mmol/L BUN 25 H (9-20) mg/dL Creatinine 1.32 H 1.6 H (0.66-1.25) mg/dL Est GFR (CKD-EPI)AfAm 45.6 L (60.0-200.0) Est GFR (CKD-EPI)NonAf 39.3 L (60.0-200.0) Glucose 121 H (70-110) mg/dL Total Bilirubin 1.4 H (0.2-1.3) mg/dL
[2022-07-13 20:08] VITALS: TEMP 98.5
[2022-07-13] MEDS: AMITRIPTYLINE HCL 50 MG TAB PO SCH (21:49)
[2022-07-13] MEDS: polyethylene glycoL 3350 17 GM POWD.PACK PO SCH (21:49)
[2022-07-13] MEDS: TAMSULOSIN 0.4 MG CAP.ER.24H PO SCH (21:49)
[2022-07-14] MEDS: HYDROcodone/APAP 5-325MG 1 EACH TAB PO PRN (02:44)
[2022-07-14] MEDS: LEVOTHYROXINE 50 MCG TAB PO SCH (05:47)
[2022-07-14] MEDS: ACETAMINOPHEN TAB 500 MG TAB PO SCH ×2 (05:47→12:49)
[2022-07-14] MEDS: polyethylene glycoL 3350 17 GM POWD.PACK PO SCH (08:16)
[2022-07-14] MEDS: ATORVASTATIN 40 MG TAB PO SCH (08:17)
[2022-07-14] MEDS: PANTOPRAZOLE 40 MG TABLET PO SCH (08:17)
[2022-07-14] MEDS: FINASTERIDE 5 MG TAB PO SCH (08:17)
[2022-07-14] MEDS: FLUTICASONE 50MCG/SPRAY NASAL 16GM EA NOSTRIL SCH (08:17)
[2022-07-14] MEDS: TAMSULOSIN 0.4 MG CAP.ER.24H PO SCH (08:17)
[2022-07-14] MEDS: PREGABALIN 75 MG CAP PO SCH (08:17)
[2022-07-14] MEDS: MULTIVITAMINS, THERA 1 EACH TAB PO SCH (08:17)
[2022-07-14] MEDS: LACTATED RINGERS 1,000 ML IV SCH (08:25)
--- NOTE | 2022-07-14 08:40 | P.OP ---
Date of Procedure: 07/12/22 Preoperative Diagnosis: 1. L4-5 Grade I spondylolisthesis 2. RLE radiculopathy 3. LE weakness 4. Mechanical low back pain Postoperative Diagnosis: 1. L4-5 Grade I spondylolisthesis 2. RLE radiculopathy 3. LE weakness 4. Mechanical low back pain Procedure(s) Performed: 1. L4-5 minimally invasive transforaminal lumbar interbody and posteriolateral fusion (15416) 2. insertion of biomechanical device L4-5 (43217) 3. Non segmental instrumentation L4-5 (41112) 4. Laminectomy, facetectomy and foraminotomy L4-5 for mobilization, and decompression beyond that of cage placement (02684) use of IONM Use of microscope Implants: -Globus Creo Screw and angelique system -Zivation expandable TLIF cage 03-26 -Autograft -Allograft -MagnatOs -iFactor Anesthesia: NICOLLEA Surgeon: Robert Lubin Stationary Equipment Mechanic #1: Alexei Garcia (Was present and assisted with all aspects of th case) Estimated Blood Loss (ml): 50 IV fluids (ml): 1,500 Urine output (ml): 300 Pathology: none sent Condition: stable Disposition: PACU Indications for Procedure: Mr. Saavedra is presenting for evaluation of low back pain with right lower extremity radiculopathy. It was my pleasure to have seen and examined Mr. Saavedra. In our visit today we have had a chance to go over subjective complaints, physical examination findings and treatments including the natural course history without intervention and various interventional options. The patients imaging demonstrates: XRay (5 views) taken on 04/28/22 obtained at [facility] of Lumbar Spine: Multiple views discussed with pt. This demonstrates L4-5 grade I spondylolisthesis with 4 mm mobile translation from F/E films. No fracture noted. 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 There is spondylosis noted at this level as well as at L5-S1 where there is also a degenerative Grade I spondylolisthesis that is stable. There is spondylosis with complete disc collapse L2-3 and some retrolisthesis. No lesions. AP pelvis demonstrates level pelvis, mild OA changes no fracture CT scan without contrast from 05/20/2022 obtained at [facility] of the lumbar spine: IMages reviewed with the patient. This demonstrates L4-5 and L5-S1 spondylolisthesis Grade I that is partially reduced on supine film. There are vacuum discs as L4-5 and L5-S1 noted as well. There is flattening of the normal lumbar lordosis secondary to these changes. No fractures noted. No lesions. Central stenosis reltated to spondylotic changes, disc bulge, hypertrophy causing stenosis as well noted. No lesions. MRI scanfrom 03/27/2022 obtained at [facility] Lumbar Spine: Images reviewed with pt in office. There is again Grade I spondylolisthesis that is mobile at L4-5 with severe central and foraminal stenosis related to this and ligamental and facet hypertrophy. There are boggy facets L4-S1 with L5-S1 GI spondylolisthesis as well that is stable. There is severe spondylosis L2-3 with complete disc collapse and retrolisthesis. There are no fractures or other dislocations. No lesions noted at this time. On physical exam, Mr. Saavedra demonstrates severely restricted lumbar ROM with bilateral buttocks TTP. Patient does also demonstrate global weakness in LE b/l with R slightly > than L. There is L3-L5 dermatomal deficit as well about the right lower extremity. Furthermore the patient has significant gait disturbance as well due to the severity of his symptoms. I have explained to the patient that as their condition progresses it will cause further neurological deficits and eventual paralysis. Based on the patients imaging, physical exam, and the rapid progression and disabling nature of their symptoms, at this time I recommend surgery in the form or a: Lumbar 4 to 5 minimally invasive TLIF (97043). I discussed the risk and benefits of this procedure at length with Mr. Saavedra. The patient and his family agreed to considered pursuing the procedure abovementioned. Prior to surgery, she should follow up with her PCP (Cardio, ID, IM etc) for clearance. Questions were invited and answered, and the patient wishes to proceed as outlined below. Currently, I am recommendin.Lumbar 4 to L5 possibly Sacral 1 minimally invasive TLIF (90273, 69694) Description of Procedure: The patient was seen and examined in the preoperative area. All preoperative protocols were followed. Informed consent was obtained risks and benefits of the procedure were discussed at length. Risks including bleeding infection damage to the surrounding tissue and risk of reoperation were discussed with the patient. Risk of anesthesia up to and including was a discussed with the patient. These are outlined in the risk review. They were willing to accept these risks and all of the risks of surgery. The patient was given a weight- based dose of antibiotics in the form of [antibiotic]. The patient was seen and evaluated by the anesthesia team who deemed them fit for surgery. The site was marked, the patient was willing to proceed with the procedure. The patient was transferred to the operative suite by the Department of anesthesia. They were then drifted off to sleep by the department anesthesia and GETA was performed. The patient tolerated this well. [Rader catheter was placed by nursing staff, atraumatically]. Once confirmation of lines and ventilation the patient was transferred to a prone Douglas table very carefully. All bony prominences including wrists, elbows, axilla, chest, hips, and thighs, and feet were padded very well. Special attention was paid to the genitalia and these were padded accordingly. SCDs were placed on bilateral lower extremities and were connected. Arms were well padded and placed [on arm boards up and out in the 90/90 position]. Once in position, again we confirmed good ventilation capabilities and that lines were running appropriately. The patient's lumbar spine was then exposed. 1010s were placed outlining the incision site. Standard alcohol was used to clean the incision site and allowed to dry. C-arm was used to biomark the patient and confirm level for incision which was marked with a skin marker. Operative briefing was performed with all teams and everyone in agreement to proceed. The patient was then prepped and draped in a normal sterile fashion. Timeout was then performed and all parties were in agreement with the procedure to be performed. Fluoroscopic guidance was then used to place a tubular retractor system in an optimal position on the right-hand side of the patient at [L4-L5]. Skin incision was made and sequential dilation taken down to the [L4-L5] interspace facet joints and pars. Once the tubular retractor system was in a good position AP and lateral imaging confirmed its positioning. The operating microscope was then brought in for visualization. We then performed limited myomectomy which uncovered the facet joints . We have performed a L-shaped cut over the lamina and inferior articular facet of [L4] using a high-speed bur. This loosened the facet. Osteotome was then used to complete this cut and the facet was removed entirely [along with the pars defect]. We then performed high-speed bur cut transversely over the superior articular facet of [L5] osteotome was then used to complete this cut and this opened up the foramen in this area for a pedicle to pedicle decompression. We finished our medial decompression with a 3 Kerrison performing an extra dural decompression of neural elements. The ligamentum flavum was removed as it was compressive in pathology. An vahe-uiv-iid decompression was then performed using Kerrison rongeurs. We then turned our attention back to the foramen the disc was identified the foraminal ligament was removed and the neural elements were mobilized this mobilization allowed for protection the disc space was identified. An osteotome was then used to access the disc space and under lateral fluoroscopic guidance it was advanced until it was centered in A to P view and anterior on the lateral view. We then perform sequential shaving until endplates were clear of any cartilage and disc material had been removed pituitary was used to remove any further free disc material. Down-biting curet was used to scrape endplates and to reach across midline to remove further disc material across midline. We then used blunt trials to trial the size implant desired. A [12] mm trial was placed and it had good fit and showed good lift and reduction. This was removed. We then irrigated the disc space. A mixture of autograft and allograft was then placed anterior within the disc space and impacted using a blunt trial. The cage was then selected and while protecting neural elements the cage was impacted into position under lateral fluoroscopic guidance. It was then expanded until it met the endplates and created good lift and reduction. The cage was tested and it was stable. Cages then back filled with DBM putty. The car icer was removed and the cage was then visualized and tested again it was stable and in good position. AP confirmed good central position. We then irrigated out the area perform meticulous hemostasis inspected the area for any issues and everything was stable. There were no dural tears there was good decompression of the extradural elements. The tubular retractor system was then carefully removed under direct visualization. We then turned our attention to placement of screws at [L4 and L5]. We then navigated a Jamshidi into the pedicles and vertebral bodies of L4 and L5 respectively wires were placed in the void of the Jamshidi] using AP and lateral fluoroscopy. The perfect scalpel was used over these wires to create a path. Screws were then measured and placed over these wires using a navigated screwdriver. Once the screw was at the back of the body the wire was pulled and screws were advanced until an optimal position. Once screws were in place they were tested and all tested above 20 mA. With screws in position we measured for a angelique once the angelique was measured was selected and the angelique was placed subfascially bilaterally. We then lock set screws into [L5] bilaterally and sequentially reduced set screws into [L4] bilaterally for spondylolisthesis reduction this was done under lateral fluoroscopic guidance. This showed [good reduction of listhesis as well as] maintenance of height and decompression. Set screws were then final tightened using torque limiter. Tabs were then broken and confirmed to be removed. Final imaging was then taken AP and lateral confirmed good placement of screws as well as cage with good reduction of listhesis in good decompression. Wounds were then copiously irrigated with normal sterile saline. Deep fascia was closed with 0 Vicryl superficial subcu tissue closed with 2-0 Vicryl and skin closed with skin vanessa. Wound edges approximated very well. The wound was then cleaned and dressed sterilely with operative foam dressings. The patient was transferred back to their hospital bed atraumatically. Patient was then awakened and extubated by the department of anesthesia having tolerated the procedure very well with no complications. They were transferred to the postoperative care unit in stable condition.
--- NOTE | 2022-07-14 08:57 | P.PN ---
Subjective Progress Note Date: 07/14/22 Hospital course: Patient is a very pleasant 87-year-old male with a past medical history of CAD status post CABG 3, hypertension, hyperlipidemia, hypothyroidism, GERD, and BPH. He is currently admitted under orthospine surgical team status post elective transforaminal lumbar interbody fusion of L4 through L5 secondary to lower back pain with right lower extremity radiculopathy that had resulted in severely restricted lumbar range of motion in right lower extremity weakness causing significant gait disturbances. We have been consulted for medical management throughout patient's hospitalization. Physical exam: Patient was seen and fully evaluated at bedside this morning. Patient appears to be doing well this morning. He reports back pain is controlled and currently rating 1-2 out of 10. Patient denies having any headache, lightheadedness, dizziness, chest pain, palpitations, shortness of breath, or any other complaints. Patient is postoperative day 2 today. Patient did experience an unwitnessed fall yesterday afternoon in which patient reportedly tried to get up from recliner and room with footstool elevated resulting in falling onto his bottom. Patient did sustain a small skin tear on right elbow requiring a bandage. Patient denied having any increased back pain or experiencing any numbness/tingling/weakness in his extremities. Orthospine surgeon was notified and stat orders place for repeat imaging. X-rays revealed no evidence of hardware complication resulting from fall and no signs of acute injuries. Morning labs reviewed and stable. Patient is medically stable for discharge home with family once cleared by primary admitting orthospine surgery team. Vital signs reviewed and stable. General: Nontoxic, no distress and appears stated age. Derm: Skin warm and dry, normal coloration for ethnicity. Dressing x2 in place to lumbar spine with minimal serosanguineous drainage. Head: Atraumatic, normocephalic and symmetric. Eyes: EOMs intact, no lid lag, and anicteric sclera Mouth: no lip lesions, mucus membranes moist Cardiovascular: regular rate and rhythm with normal S1S2, stage III systolic murmur, positive posterior tibial pulses bilaterally, and cap refill < 2 seconds. Lungs: Respirations even, regular, and unlabored on room air. Lungs CTA bilaterally, no rhonchi, no rales, no wheezing, and no accessory muscle usage. Abdominal: soft, nontender to palpation, no guarding, no appreciable organomegaly. Ext: ROM intact. No gross muscle atrophy, no edema, no contractures Neuro: Speech clear, face symmetrical and CN II-XII grossly intact with no noted focal neuro deficits Psych: Alert and oriented to person, place, time, and situation. Appropriate and pleasant affect. Assessment and Plan of Care: Status post L4 through L5 transforaminal lumbar interbody fusion -Management per primary admitting orthospine surgical team including pain management, DVT prophylaxis, wound/drain care, and PT/OT. -SCDs currently for DVT prophylaxis. -Encourage use of incentive spirometry 10-15 times hourly while awake to prevent atelectasis. Urinary retention -Bladder management straight As needed for urinary retention. Flomax increased to 0.4 mg twice daily. History of CAD status post CABG 3 Hyperlipidemia -Monitor vital signs and continue daily medication regimen with atorvastatin. May resume aspirin once cleared by orthospine surgery. Hypothyroidism Continue daily medication regimen with levothyroxine. GERD Continue daily medication regimen with omeprazole 20 mg twice daily. BPH Continue daily medication regimen with finasteride and Flomax. Thank you for allowing us to participate in the care of this pleasant patient. Do not hesitate to contact us with questions. Someone can be reached from the [facility] hospitalist group all hours of the day at [phone] or via [employer]. Objective - Vital Signs Vital signs: Vital Signs Temp 98.5 F 07/14/22 05:00 Pulse 96 07/14/22 05:00 Resp 16 07/14/22 05:00 BP 137/67 07/14/22 05:00 Pulse Ox 91 L 07/14/22 05:00 FiO2 Intake & Output 07/13/22 07/14/22 07/14/22 18:59 06:59 18:59 Intake Total 50 Output Total 1450 1600 Balance -1450 -1550 Intake: Intake, IV Titration 50 Amount ceFAZolin 2 gm In Sodium 50 Chloride 0.9% 50 ml @ 100 mls/hr IVPB Q12H [facility] Rx# :[id number] Output: Urine 1450 1600 Uretheral (Rader) 650 Other: Voiding Method Indwelling Catheter Indwelling Catheter - Labs CBC & Chem 7: 07/14/22 05:55 07/14/22 05:55 Labs: Abnormal Lab Results - Last 24 Hours (Table) 07/13/22 Range/Units 03:32 Creatinine 1.6 H (0.6-1.5) mg/dL Est GFR (CKD-EPI)AfAm 45.6 L (60.0-200.0) Est GFR (CKD-EPI)NonAf 39.3 L (60.0-200.0) Glucose 121 H (70-110) mg/dL
[2022-07-14 09:33] LABS: HCT 44.1 % (39.6-50.0); HGB 13.9 g/dL (13.0-17.0); MCHC 31.5 g/dL (32.0-37.0); MCV 98.4 fL (80.0-97.0); Mean Platelet Volume 10.4 fL (9.5-12.2); NRBC Per 100 WBC 0 /100 WBCS (0.0-0.0); Platelet Count 119 X 10*3/uL (140-440); RBC 4.48 X 10*6/uL (4.40-5.60); RDW 13.7 % (11.5-14.5); WBC 8.54 X 10*3/uL (4.50-10.00)
[2022-07-14 10:04] LABS: African American GFR (CKD) 52.4 (60.0-200.0); Anion Gap 12.4 mmol/L (10.00-18.00); BUN/Creat Ratio 14.14 Ratio (12.00-20.00); Blood Urea Nitrogen 19.8 mg/dL (9.0-27.0); Carbon Dioxide 25.6 mmol/L (20.0-27.5); Non-African American GFR(CKD) 45.2 (60.0-200.0); Potassium 4.5 mmol/L (3.5-5.5)
--- NOTE | 2022-07-14 10:16 | P.PN ---
Subjective Progress Note Date: 07/14/22 Principal diagnosis: Lumbar spondylolisthesis Lumbar spondylosis with stenosis Patient seen and examined at bedside. Patient was resting in bed. Surgical dressings are clean dry and intact. Patient reports that yesterday he was impatient with waiting for assistance to restroom and attempted to climb out of chair without putting footrest down and fell to the ground. Dressing to right elbow intact. Patient denies any increase of back pain. Patient is moving bilateral lower extremities without any difficulty. Patient had trivedi cathater placed yesterday due to retention. Flomax has been increased and consult to Urology. Spoke with Dr. Trivedi and patient will be discharged with trivedi catheter and follow up outpatient. He reports that his pain is managed on current regimen. Patient currently denies any fevers/chills, nausea/vomiting, or chest pain. Objective - Vital Signs Vital signs: Vital Signs Temp 98.5 F 07/14/22 05:00 Pulse 96 07/14/22 05:00 Resp 16 07/14/22 05:00 BP 137/67 07/14/22 05:00 Pulse Ox 91 L 07/14/22 05:00 FiO2 Intake & Output 07/13/22 07/14/22 07/14/22 18:59 06:59 18:59 Intake Total 50 Output Total 1450 1600 Balance -1450 -1550 Intake: Intake, IV Titration 50 Amount ceFAZolin 2 gm In Sodium 50 Chloride 0.9% 50 ml @ 100 mls/hr IVPB Q12H [facility] Rx# :[id number] Output: Urine 1450 1600 Uretheral (Trivedi) 650 Other: Voiding Method Indwelling Catheter - Exam Physical Examination General: The patient is awake and alert, in no acute distress Skin: Skin is warm and dry with no obvious rashes or lesions. Hairy patches absent, no dorsal skin dimples, no cafe au lait spots. Surgical incision to the lumbar region. Eye: Pupils are equal, round and reactive to light, extra-ocular movements are intact; there is normal conjunctiva bilaterally. Neck: The neck is supple, there is no tenderness and ROM intact. Cardiovascular: There is a regular rate and rhythm. No murmur, rub or gallop is appreciated. Respiratory: Lungs are clear to auscultation, respirations are non-labored, breath sounds are equal. Gastrointestinal: Soft, non-distended, non-tender abdomen. Back: There is no tenderness to palpation in the midline, paralumbar, parathoracic or buttocks region. There is no obvious deformity . Musculoskeletal: ROM limited secondary to pain and stiffness from surgical procedure. Muscle strength in all major muscle groups of bilateral upper extremities 5/5, bilateral lower extremities 4/5. Neurological: CN 2-12 intact. There are no obvious motor or sensory deficits. Movement and coordination equal and intact. Sensory exam to light touch intact C5-T1 and intact from L2-S1. Reflexes 2/4 in bilateral upper and lower extremities. Negative Hoffmans, babinski, and clonus signs. Psychiatric: Cooperative, appropriate mood & affect, normal judgment. - Labs CBC & Chem 7: 07/14/22 05:55 07/14/22 05:55 Labs: Abnormal Lab Results - Last 24 Hours (Table) 07/13/22 07/13/22 Range/Units 03:32 03:32 MCV 100.0 H (80.0-97.0) fL MCHC 31.5 L (32.0-37.0) g/dL Immature Gran # 0.05 H (0.00-0.04) X 10*3/uL Eosinophils # 0.01 L (0.04-0.35) X 10*3/uL Creatinine 1.6 H (0.6-1.5) mg/dL Est GFR (CKD-EPI)AfAm 45.6 L (60.0-200.0) Est GFR (CKD-EPI)NonAf 39.3 L (60.0-200.0) Glucose 121 H (70-110) mg/dL Assessment and Plan Assessment: Postop day 2: Minimally invasive TLIF L4-L5. Plan: Plan: -Appreciate rewards consultant and team management. -Activity: Ambulate QID, OOB all meals, up and about, limit lifting bending twisting to less than 5 lbs. Use walker or cane if needed for stability. -Daily PT/OT, increase ambulation strength and balance. -Pain control: Adequate at this time -Meds: reviewed -GI ppx: senna, Miralax -DVT PPX: OK to restart Heparin tonight -Hygiene: Shower today. Maintain dressing clean and dry. Meticulous cleaning after BMs away from the incision site -Encourage IS 10x/hr -Dispo: Anticipate discharge home today with homecare *I reviewed and discussed this case with my attending Dr. Lubin, whom has reviewed this chart and films and is in agreement with assessment and plan of care as outlined above. I have personally seen and examined the patient, performed the documentation and the assessment and plan as written. Number of minutes spent on the visit: 20m.
[2022-07-14 12:14] VITALS: BP 102/61; PULSE 92; RESP 18
--- NOTE | 2022-07-14 14:44 | P.GSCN ---
History of Present Illness Consult date: 07/14/22 Reason for Consult: Urinary retention History of present illness: This is an 87 yo male that underwent TLIF at L4-L5 by Dr Lubin on July 12. Rader catheter was removed yesterday and patient was unable to void, His postvoid residual unknown but subsequently a Rader catheter was placed. He does have a prolonged history of BPH and follows up with Dr. Longo, and he is on Flomax and Proscar at baseline. He indicated after the Rader catheter removal he was only able to dribble a small amount. Denies any gross hematuria or dysuria. Denies any previous history of urinary retention. Review of Systems - Constitutional Denies fever, Denies weight loss - EENT Ears, nose, mouth and throat: Denies dysphagia - Cardiovascular Denies chest pain, Denies shortness of breath - Respiratory Denies cough, Denies 7 - Gastrointestinal Reports as per HPI - Genitourinary Reports urinary retention, Denies dysuria, Denies hematuria - Neurological Denies headaches, Denies syncope Past Medical History Past Medical History: Cancer, GERD/Reflux, Hearing Disorder / Deafness, Hyperli pidemia, Myocardial Infarction (AR), Osteoarthritis (OA), Thyroid Disorder Additional Past Medical History / Comment(s): Hx skin cancer numerous times. Hx Silent AR in 2019. Hx Shingles 05/05 with nerve problems since in spine and left shoulder blade. Bilateral hearing aids. Last Myocardial Infarction Date:: 2018 History of Any Multi-Drug Resistant Organisms: None Reported Past Surgical History: Coronary Bypass/CABG Additional Past Surgical History / Comment(s): Triple bypass 05/02, skin cancer removed from various locations, rigth carpal tunnel surgery, bilateral catarcts removed. Past Anesthesia/Blood Transfusion Reactions: No Reported Reaction Past Psychological History: No Psychological Hx Reported Smoking Status: Former smoker Past Alcohol Use History: Daily Additional Past Alcohol Use History / Comment(s): Quit smoking at age 49. 1-2 alcoholic drinks daily. Past Drug Use History: None Reported - Past Family History Mother Family Medical History: Cancer Additional Family Medical History / Comment(s): Colon cancer. Medications and Allergies Home Medications Medication Instructions Recorded Confirmed Type Amitriptyline HCl 50 mg PO HS 07/06/22 07/12/22 History Aspirin [Adult Low Dose Aspirin EC] 81 mg PO DAILY 07/06/22 07/06/22 History Atorvastatin [Lipitor] 40 mg PO DAILY 07/06/22 07/12/22 History Finasteride [Proscar] 5 mg PO DAILY 07/06/22 07/06/22 History Fluticasone Nasal [place] [Flonase 2 spray EA NOSTRIL DAILY 07/06/22 07/12/22 History Nasal [place]] Levothyroxine Sodium [Synthroid] 50 mcg PO SUMOTUWETHFR 07/06/22 07/06/22 History Levothyroxine Sodium [Synthroid] 100 mcg PO SA 07/06/22 07/12/22 History Multivitamins, Thera [Multivitamin 1 tab PO DAILY 07/06/22 07/06/22 History (formulary)] Omeprazole 20 mg PO BID 07/06/22 07/06/22 History Pregabalin 75 mg PO BID 07/06/22 07/06/22 History Tamsulosin [Flomax] 0.4 mg PO DAILY 07/06/22 07/06/22 History Cyclobenzaprine [Flexeril] 5 mg PO TID #90 tablet 07/14/22 Rx HYDROcodone/APAP 5-325MG [[place] 1 - 2 tab PO Q6HR PRN #56 tab 07/14/22 Rx 5-325] Pregabalin [Lyrica] 75 mg PO BID #60 cap 07/14/22 Rx cefaDROXiL [Duricef] 500 mg PO Q12HR 3 Days #6 cap 07/14/22 Rx Allergies Allergy/AdvReac Type Severity Reaction Status Date / Time No Known Allergies Allergy Verified 07/12/22 08:40 Surgical - Exam Vital Signs Temp Pulse Resp BP Pulse Ox 97.0 F L 90 16 163/96 95 07/12/22 08:38 07/12/22 08:38 07/12/22 08:38 07/12/22 08:38 07/12/22 08:38 - General no distress, moderate pain - Eyes normal ocular movement, no pale - ENT normal nares, normal mucosa - Respiratory normal expansion, normal respiratory effort - Abdomen Abdomen: soft, non tender - Psychiatric oriented to time, oriented to person, oriented to place Results - Labs 07/14/22 05:55 07/14/22 05:55 Abnormal Lab Results - Last 24 Hours (Table) 07/14/22 07/14/22 Range/Units 05:55 05:55 MCV 98.4 H (80.0-97.0) fL MCHC 31.5 L (32.0-37.0) g/dL Plt Count 119 L (140-440) X 10*3/uL Est GFR (CKD-EPI)AfAm 52.4 L (60.0-200.0) Est GFR (CKD-EPI)NonAf 45.2 L (60.0-200.0) Diabetes panel 07/14/22 Range/Units 05:55 Sodium 140 (135-145) mmol/L Potassium 4.5 (3.5-5.5) mmol/L Chloride 102 (96-109) mmol/L Carbon Dioxide 25.6 (20.0-27.5) mmol/L BUN 19.8 (9.0-27.0) mg/dL Creatinine 1.4 (0.6-1.5) mg/dL Glucose 78 (70-110) mg/dL Calcium 9.0 (8.7-10.3) mg/dL Calcium panel 07/14/22 Range/Units 05:55 Calcium 9.0 (8.7-10.3) mg/dL Pituitary panel 07/14/22 Range/Units 05:55 Sodium 140 (135-145) mmol/L Potassium 4.5 (3.5-5.5) mmol/L Chloride 102 (96-109) mmol/L Carbon Dioxide 25.6 (20.0-27.5) mmol/L BUN 19.8 (9.0-27.0) mg/dL Creatinine 1.4 (0.6-1.5) mg/dL Glucose 78 (70-110) mg/dL Calcium 9.0 (8.7-10.3) mg/dL Adrenal panel 07/14/22 Range/Units 05:55 Sodium 140 (135-145) mmol/L Potassium 4.5 (3.5-5.5) mmol/L Chloride 102 (96-109) mmol/L Carbon Dioxide 25.6 (20.0-27.5) mmol/L BUN 19.8 (9.0-27.0) mg/dL Creatinine 1.4 (0.6-1.5) mg/dL Glucose 78 (70-110) mg/dL Calcium 9.0 (8.7-10.3) mg/dL Assessment and Plan Assessment: 87-year-old male. Lumbar fusion developed retention postoperatively. His residuals that it secondary to his underlying BPH, recent anesthesia and recent spine surgery. At this time I recommend keeping the Rader catheter in place and continuing flomax,proscar, he can be discharged home with the Rader catheter. And can follow-up with his urologist Dr. Longo in 1 week for a trial void
[2022-07-16] MEDS ORDERED: LEVOTHYROXINE 100 MCG TAB PO SCH (06:30)
== END 2022-07-14 15:57 | disposition home health service (06) | DRG 454 ==
LOC: OR 08:00 → 5NMEDONC 13:57 → OR 07-13 08:03 → OBSVTOIN 07-14 08:30
PROVIDERS: ADMIT Orthopaedic Surgery; ATTEND Orthopaedic Surgery
PROC: 0SG0071 Fusion of Lumbar Vertebral Joint with Autologous Tissue Substitute, Posterior Approach, Posterior Column, Open Approach (ICD-10-PCS; 2022-07-12)
PROC: 01NB0ZZ Release Lumbar Nerve, Open Approach (ICD-10-PCS; 2022-07-12)
PROC: 0SG00AJ Fusion of Lumbar Vertebral Joint with Interbody Fusion Device, Posterior Approach, Anterior Column, Open Approach (ICD-10-PCS; principal; 2022-07-12 09:45)
DX: M43.16 Spondylolisthesis, lumbar region (principal); B02.29 Other postherpetic nervous system involvement; M48.56XA Collapsed vertebra, not elsewhere classified, lumbar region, initial encounter for fracture; I10 Essential (primary) hypertension; E03.9 Hypothyroidism, unspecified; M47.26 Other spondylosis with radiculopathy, lumbar region; R26.9 Unspecified abnormalities of gait and mobility; R33.8 Other retention of urine; E78.5 Hyperlipidemia, unspecified; H91.93 Unspecified hearing loss, bilateral; I25.10 Atherosclerotic heart disease of native coronary artery without angina pectoris; N40.0 Benign prostatic hyperplasia without lower urinary tract symptoms; K21.9 Gastro-esophageal reflux disease without esophagitis; G47.9 Sleep disorder, unspecified; M48.062 Spinal stenosis, lumbar region with neurogenic claudication; W05.0XXA Fall from non-moving wheelchair, initial encounter; Y92.230 Patient room in hospital as the place of occurrence of the external cause; S51.019A Laceration without foreign body of unspecified elbow, initial encounter; I25.2 Old myocardial infarction; Z97.4 Presence of external hearing-aid; Z95.1 Presence of aortocoronary bypass graft; Z87.891 Personal history of nicotine dependence; Z79.82 Long term (current) use of aspirin; Z79.899 Other long term (current) drug therapy; Z79.890 Hormone replacement therapy
CPT/HCPCS: 72100; 72131; 80048; 80053; 83735; 84132; 85025; 85027; 86850; 86900; 86901